=== PATIENT | male | born 1975 | race Caucasian/White ===

== ENCOUNTER 2020-11-13 21:06 | Emergency (ER) | payer OTHER ==
[~2020-11-13 21:06] MED LIST: ERYTHROMYCIN O3.5 GM OU; NORCO 10-325 T1 EACH PO; XARELTO 10 MG T10 MG PO; XARELTO15 MG PO
[2020-11-13] MEDS ORDERED: CEPHALEXIN500 MG PO ×2 (22:29→22:30)
[2020-11-13] MEDS ORDERED: MEDROL DOSEPAK 24 MG PO (22:30)
== END 2020-11-13 22:37 | disposition home or self-care (01) ==
LOC: ER1 21:06
DX: L25.8 Unspecified contact dermatitis due to other agents (principal); Z79.01 Long term (current) use of anticoagulants; Z86.718 Personal history of other venous thrombosis and embolism
CPT/HCPCS: 99283